=== PATIENT | male | born 1950 | race African-American/Black ===

== ENCOUNTER → 2017-02-21 | Day surgery (SDC) | payer BC ==
[2017-02-10 08:55] VITALS: Ht 181.6 cm; Wt 100.0 kg
[~2017-02-21] VITALS: Ht 181.6 cm; Wt 100.0 kg
[~2017-02-21] MED LIST: ALPR0.25 PO; ASPI81TA28 PO; CRDCD120 PO; DILT1TAB PO; FISHOIL PO; LIDOCAINE HCL 2% 2 ML VIAL (20MG/ML) ONE; LOSARTAN PO; MECL1TAB42 PO; METH10TA4 PO; PRAV20TA PO; PROPOFOL IV EMULSION 10 MG/ML 20 ML VIAL IV ONE; SILD50TA PO; SODIUM CHLORIDE 0.9% 500ML 500 ML IV ONE
--- NOTE | 2017-02-21 13:30 | Endo History and Physical ---
History & Physical Date of Service: Feb 21, 2017. Chief Complaint: Colon screening Referring Physician: Dr. Brown Dunn History of Present Illness 66 yo male who presents for screening colonoscopy. Past Medical History Diabetes, Hypertension Past Surgical History Hx Cardiac Surgery: No Hx Internal Defibrillator: No Hx Pacemaker: No Hx Abdominal Surgery: No Hx of Implantable Prosthesis: No Hx Post-Op Nausea and Vomiting: No Hx Cancer Surgery: No Hx Thoracic Surgery: No Hx Orthopedic: Yes (REMOVAL INFECTED CYST L WRSIT) Hx Urinary Tract Surgery: Yes (VASECTOMY) Family History None Social History Smoking Status: Former Smoker Hx Substance Use: No Hx Alcohol Use: Yes (1 A WEEK) Allergies Coded Allergies: No Known Allergies (Verified , 02/21/17) Current Medications Reported Home Medications Medications Dose Route/Sig Max Daily Dose Days Date Category Dose Instructions Ritalin (Methylphenidate HCl) 10 Mg Tab 10 Mg PO PRN 02/21/17 Reported Pravachol (Pravastatin Sodium) 20 Mg Tab 20 Mg PO HS 02/10/17 Reported Aspirin Ec (Aspirin) 81 Mg Tab 81 Mg PO HS 02/10/17 Reported Meclizine Hcl 25 Mg Tab 1 Tab PO TID PRN 10 02/10/17 Reported [Losartan] 25 Mg PO HS 02/10/17 Reported Viagra (Sildenafil Citrate) 50 Mg Tab 50 Mg PO UD 12/07/11 Reported [place]-3 (Fish Oil) Oil 1 Cap PO NOON 12/07/11 Reported Xanax (Alprazolam) 0.25 Mg Tab 0.25 Mg PO Q8HR PRN 12/07/11 Reported take when driving Cardizem (Diltiazem Hcl) 120 Mg Tab 120 Mg PO HS 12/07/11 Reported Vital Signs Weight (Kilograms): 100 Height (Feet): 5 Height (Inches): 11.5 Date Time Temp Pulse Resp B/P (MAP) Pulse Ox O2 Delivery O2 Flow Rate FiO2 02/21/17 13:18 36.8 65 20 172/83 (112) 97 Room Air Physical Exam General Appearance: WD/WN, no apparent distress Respiratory/Chest: Auscultation: breath sounds normal Cardiovascular: Heart Auscultation: RRR Abdomen: Bowel Sounds: normal Inspection & Palpation: soft, non-distended, no tenderness, guarding & rebound Assessment and Plan Assessment: 66 yo male who presents for screening colonoscopy. Plan: Proceed with colonoscopy.
--- NOTE | 2017-02-21 14:23 | GI REPORT ---
Procedure Date: 02/21/2017 1:50 PM THIS REPORT HAS BEEN AMENDED Addendum Number: 1 Addendum Date: 02/28/2017 4:30:33 PM No specimens were collected during this exam, and therefore, no pathology is pending. Repeat colonosocpy in 10 years Procedure: Colonoscopy Indications: Screening for colorectal malignant neoplasm Medicines: Monitored Anesthesia Care Complications: No immediate complications. Estimated Blood Loss: Estimated blood loss: none. Procedure: Pre-Anesthesia Assessment: - Prior to the procedure, a History and Physical was performed, and patient medications and allergies were reviewed. The patient's tolerance of previous anesthesia was also reviewed. The risks and benefits of the procedure and the sedation options and risks were discussed with the patient. All questions were answered, and informed consent was obtained. Prior Anticoagulants: The patient has taken aspirin, last dose was 2 days prior to procedure. ASA Grade Assessment: II - A patient with mild systemic disease. After reviewing the risks and benefits, the patient was deemed in satisfactory condition to undergo the procedure. After I obtained informed consent, the scope was passed under direct vision. Throughout the procedure, the patient's blood pressure, pulse, and oxygen saturations were monitored continuously. The Scope was introduced through the anus and advanced to the cecum, identified by appendiceal orifice and ileocecal valve. The colonoscopy was performed without difficulty. The patient tolerated the procedure well. The quality of the bowel preparation was good. The ileocecal valve, appendiceal orifice, and rectum were photographed. Findings: Non-bleeding internal hemorrhoids were found during retroflexion. The hemorrhoids were small. The exam was otherwise without abnormality. Impression: - Non-bleeding internal hemorrhoids. - The examination was otherwise normal. - No specimens collected. Recommendation: - Resume previous diet. - Continue present medications. - Repeat colonoscopy for surveillance based on pathology results. - Return to primary care physician as previously scheduled. Ramsey Conde, DO 02/21/2017 2:23:05 PM This report has been signed electronically. Note Initiated On: 02/21/2017 1:50 PM I attest to the content of the Intraoperative Record and orders documented therein, exceptions below Ramsey Conde, DO 02/28/2017 4:31:12 PM This report has been signed electronically.
--- NOTE | 2017-02-21 14:25 | Discharge Instructions ---
Endoscopy Patient Instructions Date / Procedure(s) Performed Feb 21, 2017. Colonoscopy Allergy Information Coded Allergies: No Known Allergies (Verified , 02/21/17) Discharge Date / Findings Feb 21, 2017. Internal hemorrhoids Medication Instructions OK to resume all medications today as prescribed Reported Home Medications Medications Dose Route/Sig Max Daily Dose Days Date Category Dose Instructions Ritalin (Methylphenidate HCl) 10 Mg Tab 10 Mg PO PRN 02/21/17 Reported Pravachol (Pravastatin Sodium) 20 Mg Tab 20 Mg PO HS 02/10/17 Reported Aspirin Ec (Aspirin) 81 Mg Tab 81 Mg PO HS 02/10/17 Reported Meclizine Hcl 25 Mg Tab 1 Tab PO TID PRN 10 02/10/17 Reported [Losartan] 25 Mg PO HS 02/10/17 Reported Viagra (Sildenafil Citrate) 50 Mg Tab 50 Mg PO UD 12/07/11 Reported [place]-3 (Fish Oil) Oil 1 Cap PO NOON 12/07/11 Reported Xanax (Alprazolam) 0.25 Mg Tab 0.25 Mg PO Q8HR PRN 12/07/11 Reported take when driving Cardizem (Diltiazem Hcl) 120 Mg Tab 120 Mg PO HS 12/07/11 Reported Provider Instructions Activity Restrictions - No exercising or heavy lifting for 24 hours. - Do not drink alcohol the day of the procedure. - Do not drive a car or operate machinery until the day after the procedure. - Do not make any important decisions or sign important papers in 24 hours after the procedure. Following Day: - Return to full activity which may include returning to work/school. Diet Start your diet with liquids and light foods (jello, soup, juice, toast). Then eat your usual diet if not nauseated. Treatment For Common After Affects For mild abdominal pain, bloating, or excessive gas: - Rest - Eat lightly - Lie on right side Follow-Up Information Follow-up with Dr. Brown Dunn as scheduled Anesthesia Information What You Should Know You have had a procedure that required some medicine to reduce anxiety and discomfort. This treatment is called moderate sedation. After receiving the treatment, you may be sleepy, but you will be able to breathe on your own. The effects of the treatment may last for several hours. Follow these instructions along with Activity/Diet recommendations noted above: * Do NOT do anything where dizziness or clumsiness would be dangerous. * Rest quietly at home today, then you can be up and about tomorrow. * Have a responsible person stay with you the rest of today. * You may have had an I.V. today. If so, you may take the dressing off later today. Recommendations Call your doctor if: * Trouble breathing * Continuous vomiting for more than 24 hours * Temperature above 101 degrees * Severe abdominal pain or bloating * Pain not relieved by pain medicine ordered * There is increased drainage or redness from any incision * A large amount of rectal bleeding greater than 2-3 tablespoons. (If you had a polyp/s removed or have hemorrhoids, a small amount of blood - from the rectum is to be expected.) * You have any unanswered questions or concerns. IN THE EVENT OF A SERIOUS EMERGENCY, GO TO THE NEAREST EMERGENCY ROOM Your discharge instructions were prepared by provider Ramsey Conde. Patient Instructions Signature Page Noe Wilkinson Patient (or Guardian) Signature/Date: I have read and understand the instructions given to me by my caregivers. Caregiver/RN/Doctor Signature/Date: The above-named patient and/or guardian has received patient instructions on this date. + Original Patient Signature Page (only) stays with chart. Please make copy for patient.
--- NOTE | 2017-02-21 14:28 | Anesthesiology Progress Note ---
Anesthesia Post Op Note Date & Time Feb 21, 2017 at 14:28 Vital Signs Pain Intensity: 0 Vital Signs Past 12 Hours Date Time Temp Pulse Resp B/P (MAP) Pulse Ox O2 Delivery O2 Flow Rate FiO2 02/21/17 13:18 36.8 65 20 172/83 (112) 97 Room Air Notes Mental Status: alert / awake / arousable, participated in evaluation Pt Amnestic to Procedure: Yes Nausea / Vomiting: adequately controlled Pain: adequately controlled Airway Patency, RR, SpO2: stable & adequate BP & HR: stable & adequate Hydration State: stable & adequate Anesthetic Complications: no major complications apparent
[2017-02-21 14:55] VITALS: BP 156/94; PULSE 68; O2SAT 97
== END | disposition home or self-care (01) ==
LOC: C.GI 12:45
PROVIDERS: ATTEND Internal Medicine
DX: Z12.11 Encounter for screening for malignant neoplasm of colon (principal); D64.9 Anemia, unspecified; E11.9 Type 2 diabetes mellitus without complications; I10 Essential (primary) hypertension; K64.8 Other hemorrhoids; Z79.82 Long term (current) use of aspirin; Z87.891 Personal history of nicotine dependence

== ENCOUNTER 2017-04-22 13:09 | Emergency (ER) | payer BC ==
[~2017-04-22] VITALS: Ht 180.3 cm; Wt 103.0 kg
[~2017-04-22 13:09] MED LIST changes: -CRDCD120 PO; -LIDOCAINE HCL 2% 2 ML VIAL (20MG/ML) ONE; -PROPOFOL IV EMULSION 10 MG/ML 20 ML VIAL IV ONE; -SODIUM CHLORIDE 0.9% 500ML 500 ML IV ONE
[2017-04-22 13:18] VITALS: TEMP 36.7; Ht 180.3 cm; Wt 103.0 kg
[2017-04-22] MEDS ORDERED: XYLOCAINE 1%/SOD BICARB 20 ML VIAL INFIL ONE (13:25)
--- NOTE | 2017-04-22 13:59 | EMERGENCY ROOM VISIT NOTE ---
ED Visit Note First contact with patient: 13:27 CHIEF COMPLAINT: Right hand laceration 30 minutes ago HISTORY OF PRESENT ILLNESS: Patient is a left-hand dominant 66-year-old - [place] male who presents emergency department for evaluation of a laceration to the palm of his right hand that he sustained roughly 30 minutes ago. 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 The bleeding stopped shortly after the injury and there is no weakness or numbness of the hand or fingers. REVIEW OF SYSTEMS: Review of systems as per HPI. All other systems reviewed were negative. At least 6 systems reviewed. PMH: Electronic medical records are reviewed and summarized as above/below. See Problem List. Tetanus is up-to-date. SOCIAL HISTORY: Patient lives at home with his . Social EtOH. He is retired. PHYSICAL EXAM: Vital Signs: Reviewed Nurse's notes. There is a 3 cm long laceration on the palmar aspect of the right hand, over the thenar eminence. The edges are gaping widely apart. There is no foreign material in the wound and it looks clean. There is no active bleeding. No deep structures such as tendons or nerves are seen in the base of the wound. Extension, flexion and circumduction of the thumb is full and strong. Sensation to pain and light touch is intact. EMERGENCY DEPARTMENT COURSE: Using sterile technique, saline and Betadine cleansing, and 1% lidocaine anesthesia, the laceration was irrigated with saline and then repaired with 7, 5-0 nylon sutures. Bacitracin and a light dressing were applied. Patient tolerated the procedure well. I do not suspect nerve, tendon or vascular injury. Medication reconciliation: I attest that I have personally reviewed the patient' s current medication list. Blood pressure screening: Patient was found to have a slightly elevated blood pressure due to circumstances. I do not believe that the patient requires hypertension monitoring. Problem List Medical Problems: (1) Diab Kim Wo Compl, Type Ii Or Unspec Type, Not Uncntrld Status: Chronic (2) Dyslipidemia Status: Chronic (3) Hypertension Nos Status: Chronic Current/Historical Medications Scheduled Alprazolam (Xanax), 0.25 MG PO Q8HR PRN Aspirin (Aspirin Ec), 81 MG PO HS Diltiazem HCl (Diltiazem Cd), 120 MG PO HS Fish Oil ([place]-3), 1 CAP PO NOON Pravastatin (Pravachol ), 20 MG PO HS Sildenafil Citrate (Viagra), 50 MG PO UD [Losartan], 25 MG PO HS Scheduled PRN Meclizine Hcl (Meclizine Hcl), 1 TAB PO TID PRN for RN Methylphenidate (Ritalin), 10 MG PO for Anxiety/Agitation Allergies Coded Allergies: No Known Allergies (Verified , 02/21/17) Vital Signs Date Time Temp Pulse Resp B/P (MAP) Pulse Ox O2 Delivery O2 Flow Rate FiO2 04/22/17 14:20 58 16 129/82 97 04/22/17 13:18 36.7 65 20 148/79 96 Room Air Departure Information Impression Primary Impression: Laceration of right hand Referrals Pro,Brown Almanzar M.D. (PCP) Patient Instructions My [facility] Additional Instructions Keep wound clean and dry. Clean gently with mild soap and water daily. Use an antibiotic ointment for 3-4 days, then let wound dry. Suture removal in 10-12 days. Return sooner for any signs of infection (increasing redness, swelling, drainage). Ice and elevate for swelling and pain. Ibuprofen 600 mg and Tylenol 1000 mg every 6 hrs for pain. Problem Qualifiers Primary Impression: Laceration of right hand Encounter type: initial encounter Foreign body presence: without foreign body Qualified Codes: S61.411A - Laceration without foreign body of right hand , initial encounter
[2017-04-22] MEDS ORDERED: CRDCD120 PO (14:19)
[2017-04-22 14:20] VITALS: BP 129/82; PULSE 58; O2SAT 97
== END 2017-04-22 14:21 | disposition home or self-care (01) ==
LOC: C.EDB 13:11 → C.EDD 14:21
DX: S61.411A Laceration without foreign body of right hand, initial encounter (principal); W26.0XXA Contact with knife, initial encounter; Y92.9 Unspecified place or not applicable; E11.9 Type 2 diabetes mellitus without complications; E78.5 Hyperlipidemia, unspecified; I10 Essential (primary) hypertension; Z79.899 Other long term (current) drug therapy

== ENCOUNTER 2017-05-03 10:46 | Emergency (ER) | payer BC ==
[~2017-05-03] VITALS: Ht 180.3 cm; Wt 105.0 kg
[~2017-05-03 10:46] MED LIST changes: +CRDCD120 PO; -DILT1TAB PO
[2017-05-03 10:48] VITALS: BP 143/76; PULSE 69; TEMP 36.5; O2SAT 96; Ht 180.3 cm; Wt 105.0 kg
--- NOTE | 2017-05-03 11:11 | EMERGENCY ROOM VISIT NOTE ---
ED Visit Note First contact with patient: 10:57 CHIEF COMPLAINT: Suture removal HPI: This patient returns to the ED today for removal of sutures that were placed 10 days ago. There has been no swelling, redness, or drainage from the wound. The patient feels like the laceration is healing well. REVIEW OF SYSTEMS: A complete 6 point review of systems was reviewed with the patient with pertinent positives and negatives as per history of present illness. All else were negative. MEDS: Please see list. I did personally review the patient's medication list with him at bedside. PMH: Hypertension, anxiety, hyperlipidemia, ADHD SOCIAL HISTORY: Patient lives locally with family. He denies drug, alcohol, tobacco use. PHYSICAL EXAM: Vital Signs: Reviewed Nurse's notes. There is a sutured wound on the anterior aspect of the right hand with no signs of infection. There is no erythema, swelling, or tenderness. The wound edges are well approximated and healing nicely. EMERGENCY DEPARTMENT COURSE: The sutures were removed without any difficulty and there was no separation of the wound edges. Discharge instructions reviewed. The patient was discharged home in good condition. DIAGNOSIS: Healing laceration and suture removal DISCHARGE INSTRUCTIONS AND TREATMENT: Wash any remaining crusts off of the wound today and resume your normal activities. Problem List Medical Problems: (1) Diab Kim Wo Compl, Type Ii Or Unspec Type, Not Uncntrld Status: Chronic (2) Dyslipidemia Status: Chronic (3) Hypertension Nos Status: Chronic Current/Historical Medications Scheduled Alprazolam (Xanax), 0.25 MG PO Q8HR PRN Aspirin (Aspirin Ec), 81 MG PO HS Diltiazem HCl (Diltiazem Cd), 120 MG PO HS Fish Oil ([place]-3), 1 CAP PO NOON Pravastatin (Pravachol ), 20 MG PO HS Sildenafil Citrate (Viagra), 50 MG PO UD [Losartan], 25 MG PO HS Scheduled PRN Meclizine Hcl (Meclizine Hcl), 1 TAB PO TID PRN for RN Methylphenidate (Ritalin), 10 MG PO for Anxiety/Agitation Allergies Coded Allergies: No Known Allergies (Verified , 02/21/17) Vital Signs Date Time Temp Pulse Resp B/P (MAP) Pulse Ox O2 Delivery O2 Flow Rate FiO2 05/03/17 10:48 36.5 69 18 143/76 96 Departure Information Impression Primary Impression: Encounter for removal of sutures Dispostion Home / Self-Care Condition GOOD Referrals Pro,Brown Almanzar M.D. (PCP) Patient Instructions ED Laceration Ext Sutr Stap Tape, [facility] Additional Instructions Proper wound care is essential for adequate wound healing and infection prevention. You can shower and clean the wound with soap and water. Do not scour over the wound, pat dry with a towel. Do not submerse the wound (i.e. bathe or dish wash) until the wound has fully healed. You can use an antibiotic ointment with a dressing over the wound for the next 3-4 days. After this time you may leave the wound dry and open to the air. Wash any remaining crusts off of the wound today and resume your normal activities. Return for worsening redness, pus, fever, chills, nausea, vomiting, or other concerning symptoms.
== END 2017-05-03 11:18 | disposition home or self-care (01) ==
LOC: C.EDB 10:49 → C.EDD 11:18
DX: S61.411D Laceration without foreign body of right hand, subsequent encounter (principal); X58.XXXD Exposure to other specified factors, subsequent encounter

== ENCOUNTER → 2017-12-01 | Outpatient (CLI) | payer BC ==
[2017-11-29 16:06] LABS: BLOOD UREA NITROGEN 22 mg/dl (7-18); CREATININE 1.03 mg/dl (0.60-1.40)
[~2017-12-01] MED LIST changes: -CRDCD120 PO; +DILT-202 PO; +GADAVIST IV PRN
--- NOTE | 2017-12-01 08:59 | DIAGNOSTIC IMAGING REPORT ---
CAROTID DOPPLER NECK ART CLINICAL HISTORY: 67 years-old Male presenting with R29.90 Stroke-like symptoms. TECHNIQUE: Real-time grayscale and color and spectral Doppler ultrasound imaging of the bilateral carotid arteries was performed. NASCET criteria was used in evaluating this study. COMPARISON: 12/08/2011. FINDINGS: Right: Common carotid: Patent. Peak systolic velocity 85 cm/s. Internal carotid artery: Atherosclerosis of the proximal ICA. Peak systolic velocity 91 cm/s. Systolic ratio: 1.1. External carotid artery: Patent. Peak systolic velocity 84 cm/s. Left: Common carotid: Patent. Peak systolic velocity 116 cm/s. Internal carotid artery: Patent. Peak systolic velocity 81 cm/s. Systolic ratio: 0.7. External carotid artery: Patent. Peak systolic velocity 92 cm/s. Bilateral antegrade flow within the vertebral arteries. Reference ranges: Stenosis measurements are compared to reference velocity parameters. Primary parameters: ICA peak systolic velocity (PSV) < 125 cm/s normal or indicating < 50% stenosis; ICA PSV 125-230 cm/s equivalent to 50-69% stenosis; ICA PSV > 230 cm/s equivalent to greater than or equal to 70% stenosis. Additional parameters: ICA PSV to common carotid artery PSV ratio < 2 normal or < 50% stenosis; 2-4 equates to 50-69% stenosis, > 4 equates to greater than or equal to 70% stenosis. Normal ICA end-diastolic velocity less than 40. Blood pressure Brachial: Right: 146/81 mmHg, Left: 149/80 mmHg. IMPRESSION: No hemodynamically significant stenosis seen within the carotid arteries. Electronically signed by: Myron Jaime M.D. 12/01/2017 8:58 AM Dictated Date/Time: 12/01/2017 8:57 AM
--- NOTE | 2017-12-01 09:41 | DIAGNOSTIC IMAGING REPORT ---
BRAIN COMBO HISTORY: 67 years-old Male R29.90 Stroke-like symptoms acute strokelike symptoms with memory loss COMPARISON: MRI brain 12/08/2011 TECHNIQUE: Multiplanar multisequence MRI of the brain was obtained both with and without the use of 10 mL Gadavist FINDINGS: There is no restricted diffusion to suggest acute or subacute infarction. The midline structures including the corpus callosum, brainstem, optic chiasm, pituitary and pineal glands appear unremarkable on the sagittal T1 series. No cerebellar tonsillar herniation. Degenerative changes of the imaged cervical spine are noted. The major flow voids at the level of the skull base appear patent. Mastoid air cells are clear. Mild polypoid mucosal thickening of the maxillary sinuses with mild ethmoid sinus disease. Orbits are symmetric and unremarkable. The soft tissues are within normal limits. There is no acute intracranial hemorrhage, midline shift, abnormal extra-axial collections or hydrocephalus. Minimal punctate foci of increased T2/FLAIR signal are noted within the subcortical and periventricular white matter suggesting minimal chronic microvascular ischemic changes which appears similar to comparison. There is no abnormal intra-axial or extra-axial enhancement identified. Enhancing vessels within the right frontal lobe, image 14 series 10 image 3 series 11 may reflect a small developmental venous anomaly. IMPRESSION: 1. No acute intracranial abnormality identified. No evidence of acute or subacute infarction. 2. Suggested minimal chronic microvascular ischemic changes. 2. Linear vascular enhancement within the right frontal lobe suggests small developmental venous anomaly. The above report was generated using voice recognition software. It may contain grammatical, syntax or spelling errors. Electronically signed by: Rory Howell M.D. 12/01/2017 9:40 AM Dictated Date/Time: 12/01/2017 9:32 AM
== END | disposition home or self-care (01) ==
LOC: C.ULTRBC 08:13
PROVIDERS: ATTEND Psychiatry & Neurology Neurology
DX: I67.9 Cerebrovascular disease, unspecified (principal); R29.90 Unspecified symptoms and signs involving the nervous system; I10 Essential (primary) hypertension